=== PATIENT | female | born 1995 | race African-American/Black ===

== ENCOUNTER 2020-05-15 12:30 | Inpatient (IN) ==
[2020-05-15 13:02] LABS: Basophils % 0.4 % (0.0-0.8); Eosinophils # 0.1 10*3/uL (0.0-0.87); Eosinophils % 1.1 % (0.00-10.9); Hematocrit 33.7 VOL% (35.7-47.0); Hemoglobin 10.8 GM/DL (12.0-16.0); Immature Granulocytes % 0.6 %; Immature Granulocytes Absolute 0.07 #; Lymphocytes # 2.2 10*3/uL (1.4-4.0); Lymphocytes % 19.8 % (21.3-54.2); Mean Corpuscular Volume 86.2 FL (87-102); Mean Platelet Volume 9.8 FL (9.6-12.0); Neutrophils % 69.1 % (38.7-73.9); Platelet Count 220 T/CUMM (130-400); Red Blood Count 3.91 MC/CUMM (3.8-5.5); Red Cell Distribution Width 13.8 % (9.3-17.3); White Blood Count 11.1 T/CUMM (4-12)
[2020-05-15 13:11] LABS: Glucose,Urine (UA) Negative (Negative); Ketones,Urine Negative (Negative); Nitrite,Urine Negative (Negative); Protein,Urine Negative; Urine Appearance Clear (Clear); Urine Color Yellow (Yellow); Urine Specific Gravity 1.005 (1.001-1.035)
[2020-05-15 13:12] LABS: Amorphous Crystals,Urine Few /HPF (Few); Bacteria,Urine 1+ /HPF (Few); Bilirubin,Urine Negative (Negative); Blood, Urine Trace mg/dL (Negative); RBC,Urine Rare /HPF (0-4); Squamous Epithelial Cell,Urine Moderate /HPF (0-10); Urine Urobilinogen < 2.0 EU/DL (0.2-1.0); WBC,Urine Occasional /HPF (0-6)
[2020-05-15 13:18] LABS: INR 0.9; PT Patient Result 10.2 SECS (9.8-11.9); Partial Thromboplastin Time 27.1 SECS (23.9-33.8)
[2020-05-15 13:40] LABS: Alanine Aminotransferase 16 U/L (13-56); Albumin 2.6 G/DL (3.4-5.0); Alkaline Phosphatase 111 U/L (45-117); Aspartate Amino Transferase 13 U/L (0-37); Bilirubin,Direct < 0.100 MG/DL (0.0-0.20); Bilirubin,Total < 0.39 MG/DL (0.2-1.0); Blood Urea Nitrogen 6 MG/DL (7-18); Calcium 8.6 MG/DL (8.5-10.1); Carbon Dioxide 21 MMOL/L (21-32); Estimated Glom Filtration Rate 155 ML/MIN; Glucose 88 MG/DL (74-106); Osmolality,Calculated 269.8 MOS/KG (273-304); Potassium 3.1 MMOL/L (3.5-5.1); Sodium 137 MMOL/L (136-145); Total Protein 7.5 G/DL (6.4-8.3); Uric Acid 4.5 MG/DL (2.6-6.0)
[2020-05-15] MEDS ORDERED: BUTORPHANOL 1 MG/ML VIAL IV PRN (15:30)
[2020-05-15] MEDS ORDERED: ONDANSETRON 4 MG/2 ML VIAL IV PRN (15:30)
[2020-05-15] MEDS ORDERED: BUTORPHANOL 2 MG/ML VIAL IV PRN (15:30)
[2020-05-15] MEDS ORDERED: MEPERIDINE 50 MG/1 ML VIAL IV PRN (15:30)
[2020-05-16] MEDS ORDERED: OXYTOCIN/LR 20 UNIT/1,000 ML BAG IV ONE ×2 (00:10→18:09)
[2020-05-16] MEDS: LACTATED RINGERS 1,000 ML IV PRN ×2 (01:30→10:08)
[2020-05-16] MEDS: OXYTOCIN/LR 20 UNIT/1,000 ML BAG IV SCH ×2 (02:00→16:36)
[2020-05-16] MEDS ORDERED: NALOXONE 0.4 MG/ML VIAL IV PRN (09:52)
[2020-05-16] MEDS ORDERED: LACTATED RINGERS 250 ML IV PRN (09:52)
[2020-05-16] MEDS ORDERED: diphenhydrAMINE 50 MG/1 ML VIAL IV PRN ×2 (09:52)
[2020-05-16] MEDS ORDERED: PROMETHAZINE 25 MG/1 ML VIAL IM ONE (09:52)
[2020-05-16] MEDS ORDERED: hydrOXYzine HCL 25 MG/1 ML VIAL IM PRN (09:52)
[2020-05-16] MEDS ORDERED: ONDANSETRON 4 MG/2 ML VIAL IV ONE (09:52)
[2020-05-16] MEDS ORDERED: FAMOTIDINE 20 MG/2 ML VIAL IV ONE (09:52)
[2020-05-16] MEDS ORDERED: CITRIC ACID/SODIUM CITRATE 30 ML UDCUP PO ONE (09:52)
[2020-05-16] MEDS ORDERED: ePHEDrine 50 MG/ML VIAL IV PRN (09:52)
[2020-05-16] MEDS ORDERED: fentaNYL 2 MCG/ROPIV 0.2% EPID 100 ML EPIDURAL SCH (10:00)
[2020-05-16 11:50] LABS: Glucose,Urine (UA) Negative (Negative); Protein,Urine Negative; Urine Appearance Clear (Clear); Urine Color Yellow (Yellow); Urine Specific Gravity 1.005 (1.001-1.035)
[2020-05-16 11:51] LABS: Bilirubin,Urine Negative (Negative); Blood, Urine Negative (Negative); Ketones,Urine 2+ mg/dL (Negative); Nitrite,Urine Negative (Negative); Urine Urobilinogen < 2.0 EU/DL (0.2-1.0)
[2020-05-16 14:50] LABS: Cord Arterial Blood HCO3 21.1 MMOL/L
[2020-05-16 14:51] LABS: Cord Venous Blood HCO3 25.3 MMOL/L; Cord Venous Blood PO2 27.8 MMHG
[2020-05-16] MEDS ORDERED: DIPH/TET/ACEL PERT BOOSTER VACCINE 0.5 ML VIAL IM ONE (18:09)
[2020-05-16] MEDS ORDERED: BENZOCAINE 20%/MENTHOL 0.5% SPRAY 56 GM CAN TOP PRN (18:09)
[2020-05-16] MEDS ORDERED: LANOLIN 50% CREAM 0.3 OZ TUBE TOP PRN (18:09)
[2020-05-16] MEDS ORDERED: BISACODYL 10 MG SUPP RECTAL PRN (18:09)
[2020-05-16] MEDS ORDERED: oxyCODONE/ACETAMINOPHEN 5-325 MG TABLET PO PRN (18:09)
[2020-05-16] MEDS ORDERED: MEASLES/MUMPS/RUBELLA VACCINE 0.5 ML VIAL SUBCUT ONE (18:09)
[2020-05-16] MEDS ORDERED: RHO(D) IMMUNE GLOBULIN 300 MCG SYRINGE IM ONE (18:09)
[2020-05-16] MEDS ORDERED: HYDROCORTISONE 2.5% RECTAL CREAM 30 GM TUBE TOP PRN (18:09)
[2020-05-16] MEDS ORDERED: ACETAMINOPHEN 325 MG TABLET PO PRN (18:09)
[2020-05-16] MEDS ORDERED: WITCH HAZEL PADS 100/JAR TOP PRN (18:09)
[2020-05-16] MEDS: amLODIPine 5 MG TABLET PO SCH (21:19)
[2020-05-16] MEDS: POTASSIUM CHLORIDE 20 MEQ TABLET PO PRN ×2 (21:19→23:17)
[2020-05-16] MEDS: DOCUSATE SODIUM 100 MG CAPSULE PO SCH (21:19)
[2020-05-16] MEDS: oxyCODONE/ACETAMINOPHEN 5-325 MG TABLET PO PRN (23:18)
[2020-05-17] MEDS: POTASSIUM CHLORIDE 20 MEQ TABLET PO PRN ×2 (01:16→03:08)
[2020-05-17] MEDS: IBUPROFEN 800 MG TABLET PO PRN ×2 (03:10→08:58)
[2020-05-17 05:00] LABS: Basophils # 0.1 10*3/uL (0.0-0.2); Basophils % 0.5 % (0.0-0.8); Eosinophils # 0.2 10*3/uL (0.0-0.87); Hematocrit 31.2 VOL% (35.7-47.0); Hemoglobin 10.2 GM/DL (12.0-16.0); Immature Granulocytes % 0.4 %; Immature Granulocytes Absolute 0.06 #; Lymphocytes # 3.1 10*3/uL (1.4-4.0); Lymphocytes % 20.8 % (21.3-54.2); Mean Corpuscular HGB Conc 32.7 GM/DL (32-36); Mean Corpuscular Volume 86.2 FL (87-102); Mean Platelet Volume 10.5 FL (9.6-12.0); Monocytes % 9.4 % (1.7-12.7); Neutrophils % 67.9 % (38.7-73.9); Platelet Count 206 T/CUMM (130-400); Red Blood Count 3.62 MC/CUMM (3.8-5.5); Red Cell Distribution Width 13.5 % (9.3-17.3); White Blood Count 14.7 T/CUMM (4-12)
[2020-05-17] MEDS: amLODIPine 5 MG TABLET PO SCH (08:51)
[2020-05-17] MEDS: DOCUSATE SODIUM 100 MG CAPSULE PO SCH ×2 (08:51→20:32)
[2020-05-17] MEDS: oxyCODONE/ACETAMINOPHEN 5-325 MG TABLET PO PRN (08:55)
[2020-05-18] MEDS: IBUPROFEN 800 MG TABLET PO PRN (06:01)
[2020-05-18 10:16] VITALS: BP 134/82
[2020-05-18] MEDS: DOCUSATE SODIUM 100 MG CAPSULE PO SCH (10:36)
[2020-05-18] MEDS: amLODIPine 5 MG TABLET PO SCH (10:36)
== END 2020-05-18 14:40 | disposition home or self-care (01) | DRG 560 ==
LOC: N.LDOUT 12:30 → N.LD 12:33 → N.OB 05-16 18:23
PROVIDERS: ADMIT Obstetrics & Gynecology; ATTEND Obstetrics & Gynecology